=== PATIENT | female | born 1955 | race Caucasian/White ===

== ENCOUNTER → 2018-02-02 | Outpatient (CLI) | payer BC ==
[~2018-02-02] MED LIST: ACET1TAB84 PO; ASPI81TA28 PO; BISO10TA14 PO; CALC600T9 PO; FLUT0.15 INTNAS; HYZ/10015 PO; METF-384 PO; PRAV20TA PO; SITA100T3 PO; TRAM-10 PO
--- NOTE | 2018-02-02 12:29 | DIAGNOSTIC IMAGING REPORT ---
CHEST 2 VIEWS ROUTINE CLINICAL HISTORY: Preoperative evaluation. COMPARISON STUDY: No previous studies for comparison. FINDINGS: Lung volumes are normal. No pneumothorax or pleural effusion is noted. There is no consolidation or evidence for pulmonary edema. Cardiac size is normal. Mediastinal contours are normal. IMPRESSION: No acute cardiopulmonary findings. Electronically signed by: Mateus Ornelas M.D. 02/02/2018 12:27 PM Dictated Date/Time: 02/02/2018 12:27 PM
[2018-02-02 12:45] LABS: BASO % 0.4 %; BASO ABS # 0.03 K/uL (0-0.2); EOS % 2.7 %; EOS ABS # 0.18 K/uL (0-0.5); HEMATOCRIT 41.5 % (37-47); HEMOGLOBIN 13.2 g/dL (12.0-16.0); IG# 0.01 K/uL (0.00-0.02); LYMPH % 24.4 %; LYMPH ABS # 1.63 K/uL (1.2-3.4); MEAN CORPUSCULAR HEMOGLOBIN 26.4 pg (25-34); MEAN CORPUSCULAR HGB CONC 31.8 g/dl (32-36); MEAN PLATELET VOLUME 11.6 fL (7.4-10.4); MONO ABS # 0.27 K/uL (0.11-0.59); NEUT % 68.4 %; NEUT ABS # 4.57 K/uL (1.4-6.5); PLATELET COUNT 218 K/uL (130-400); RED CELL DISTRIBUTION WIDTH CV 15.1 % (11.5-14.5); WHITE BLOOD COUNT 6.69 K/uL (4.8-10.8)
[2018-02-02 12:51] LABS: ALBUMIN 3.9 gm/dl (3.4-5.0); BLOOD UREA NITROGEN 18 mg/dl (7-18); CALCIUM 9.2 mg/dl (8.5-10.1); CARBON DIOXIDE 28 mmol/L (21-32); CREATININE 1.05 mg/dl (0.60-1.20); GLUCOSE 106 mg/dl (70-99); SODIUM 140 mmol/L (136-145)
[2018-02-02 12:53] LABS: PTT PATIENT 26.5 SECONDS (21.0-31.0)
[2018-02-02 13:15] LABS: HEMOGLOBIN A1C 6.4 % (4.5-5.6)
== END | disposition home or self-care (01) ==
LOC: C.CPL 10:42
PROVIDERS: ATTEND Orthopaedic Surgery
DX: Z01.810 Encounter for preprocedural cardiovascular examination (principal); Z01.811 Encounter for preprocedural respiratory examination; Z01.812 Encounter for preprocedural laboratory examination; R00.1 Bradycardia, unspecified

== ENCOUNTER 2018-03-04 06:02 | Inpatient (IN) | payer BC ==
[2018-01-23 12:28] VITALS: BMI 39.0
--- NOTE | 2018-02-02 09:50 | History and Physical ---
History & Physical Date Feb 02, 2018. Chief Complaint Right Knee Pain History of Present Illness Ms Parks is a 63 year old female who is here for PRE-OPERATIVE VISIT, RIGHT KNEE TKA SCHEDULED FOR 03/04/[address] FREEMAN @ [facility]. The symptoms occur intermittently and is unchanged. Currently the patient states that the symptoms are moderate-severe. The pain is described as aching, discomforting and throbbing. She rates her current pain as 4/10. The symptoms are aggravated by ascending stairs, descending stairs, daily activities, driving, first steps while awake, kneeling, movement, repetitive activities, sleeping on the affected side, squatting and walking. Julia states that the symptoms are relieved by no specific activity. In addition to right knee pain the patient is also experiencing decreased mobility, difficulty bending, difficulty going to sleep, limping, nighttime awakening, pain, stiffness, tenderness and weakness. Pertinent negatives include chills and fever. The patient has had a previous x- ray and MRI. Prior pain medications include Tylenol and Ultram. Prior NSAIDs include aspirin. Patient is unable to take NSAIDS d/t having stage 2 kidney disease. NSAIDS not recommended by PCP. She has been treated with a corticosteroid injection on the right side. Patient has been treated with previous visco supplementation, Euflexxa series of 3 injections. No relief with injections. Past Medical/Surgical History Hypertension Type II Diabetes Obesity Stage 2 Kidney Disease Tonsillectomy 1960 Ankle Lipoma 1980s 1989 Additional History Hepatic Disease: No Kidney Disease: Yes Hypertension: Yes Other: 5'6" 242 pounds O2 sats- 99% Pulse- 60 BP 102/64 Allergies Coded Allergies: Nickel (Verified Allergy, Unknown, SKIN IRRITATION, 01/23/18) Nitrofurantoin (Verified Allergy, Unknown, HIVES, 01/23/18) Sulfa Antibiotics (Verified Allergy, Unknown, HIVES, 01/23/18) Home Medications Scheduled Acetaminophen (Tylenol Arthritis Ext Rel), 650 MG PO BID Aspirin (Aspirin Ec), 81 MG PO QPM Bisoprolol/Hctz (Ziac 10MG/6.25MG), 1 TAB PO QAM Calcium Carbonate-Vitamin D (Calcium + D), 1 TAB PO QAM Fluticasone Propionate (Nasal) (Flonase Allergy Relief), 1 SPRAYS INTNAS QAM Hctz/Losartan (Hyzaar 25MG/100MG), 1 TAB PO QAM Metformin Hcl (Glucophage), 1,000 MG PO BID Pravastatin (Pravachol ), 40 MG PO HS Sitagliptin Phosphate (Januvia), 100 MG PO QAM Tramadol (Ultram), 50 MG PO BID Physical Examination Skin: warm/dry, no rash Eyes: normal inspection, EOMI, sclerae normal ENT: normal ENT inspection, pharynx normal Neck: supple, no adenopathy, trachea midline Respiratory/Chest: lungs clear, normal breath sounds, no respiratory distress Cardiovascular: regular rate, rhythm, no edema, no murmur Abdomen / GI: normal bowel sounds, non tender Addiitonal Comments: Right Knee Physical Exam Exam Findings Details Ankle ROM R * Active ROM - Factors: normal, Description: active pain free range of motion. Passive ROM - Factors: normal, Description: passive pain free range of motion. Hip ROM R * Active ROM - Factors: normal, Description: active pain free range of motion. Passive ROM - Factors: normal, Description: passive pain free range of motion. Knee ROM R * Active ROM - Flexion: 115 degrees, Extension: 3 degrees, Factors: pain, Description: active painful range of motion. Passive ROM - Flexion: 115 degrees, Extension: 3 degrees, Factors: pain, Description: passive painful range of motion. Strength LE Normal Strength Description - Normal lower extremity: Right. Hip: Right: strength is normal. Knee: Right: strength is normal. Ankle/Foot: Right: strength is normal. Knee * Inspection - Gait: limp. Alignment - Right: varus, Clinical. Ecchymosis - Right: none. Effusion - Right: mild. Swelling - Right: mild. Maximum tenderness - Right: diffuse. Patella exam - Crepitation - Right: moderate. [facility]'s - lateral - Right: Positive. [facility]'s - medial - Right: Positive. Knee Comments Calf SNT, DP+2 Knee Normal Inspection - Atrophy - Right: Absent. Patella exam - Apprehension - Right: Negative. Ashlee's - Right: Negative. Valgus stress - Right: Negative. Varus stress - Right: Negative. Extensor lag - Right: Normal. Neurovascular LE Normal Neurovascular examination including reflexes, sensation , and pulses is within normal limits. Xrays reviewed of the Right knee showing findings consistent with degenerative joint disease including joint space narrowing, subchondral sclerosis and peripheral osteophyte formation. no acute bony pathology, overall varus alignment. Impression: degenerative joint disease of the Right knee with no acute bony pathology noted. Diagnosis Right Knee Osteoarthritis Plan of Treatment Further care discussed with patient and at this point in time has failed conservative measures and would like to proceed with a right total knee replacement. Plan on discharge will be home with home health physical therapy. DVT prophalaxis with TEDs, SCDs and will also place on aspirin 81 mg p.o. b.i.d. for a month postop. Patient will have follow up appointment in our office two weeks post op for staple/suture removal and re-evaluation. Patient otherwise has no other questions or concerns.
[2018-02-02 10:54] VITALS: BMI 39.0
--- NOTE | 2018-02-02 11:25 | PAT Medication Instructions ---
Service Date Feb 02, 2018. Current Home Medication List Acetaminophen (Tylenol Arthritis Ext Rel), 650 MG PO BID Aspirin (Aspirin Ec), 81 MG PO QPM Bisoprolol/Hctz (Ziac 10MG/6.25MG), 1 TAB PO QAM Calcium Carbonate-Vitamin D (Calcium + D), 1 TAB PO QAM Fluticasone Propionate (Nasal) (Flonase Allergy Relief), 1 SPRAYS INTNAS QAM Hctz/Losartan (Hyzaar 25MG/100MG), 1 TAB PO QAM Metformin Hcl (Glucophage), 1,000 MG PO BID Pravastatin (Pravachol ), 40 MG PO HS Sitagliptin Phosphate (Januvia), 100 MG PO QAM Tramadol (Ultram), 50 MG PO BID Medication Instructions For Your Scheduled Surgery - Hold the following medications the morning of surgery: Calcium Carbonate-Vitamin D (Calcium + D), 1 TAB PO QAM Hctz/Losartan (Hyzaar 25MG/100MG), 1 TAB PO QAM Metformin Hcl (Glucophage), 1,000 MG PO BID Sitagliptin Phosphate (Januvia), 100 MG PO QAM - Take the following medications the morning of surgery with a sip of water: Tramadol (Ultram), 50 MG PO BID (okay to take up to 4 hours prior to surgery if needed) Acetaminophen (Tylenol Arthritis Ext Rel), 650 MG PO BID (okay to take up to 4 hours prior to surgery if needed) Fluticasone Propionate (Nasal) (Flonase Allergy Relief), 1 SPRAYS INTNAS QAM Bisoprolol/Hctz (Ziac 10MG/6.25MG), 1 TAB PO QAM - Take the following medications as scheduled the night before surgery: Tramadol (Ultram), 50 MG PO BID Acetaminophen (Tylenol Arthritis Ext Rel), 650 MG PO BID Pravastatin (Pravachol ), 40 MG PO HS Metformin Hcl (Glucophage), 1,000 MG PO BID Aspirin (Aspirin Ec), 81 MG PO QPM If you have any questions please call us at [phone] or [phone] or [phone]
[2018-03-04] VITALS (10 sets, daily range): BP systolic 112–164; BP diastolic 58–80; PULSE 56–73; TEMP 36.4–37; O2SAT 93–98; Ht 167.6 cm; Wt 110.6 kg
[~2018-03-04] VITALS: Ht 167.6 cm; Wt 110.6 kg
[~2018-03-04 06:02] MED LIST changes: +ACETAMINOPHEN 500 MG TAB PO SCH; +CEFAZOLIN 2000MG IV PUSH 15 ML IV SCH; +DEXAMETHASONE 4 MG TAB PO SCH; +FAMOTIDINE 20 MG TAB PO SCH; +GABAPENTIN 600 MG PO SCH; +LACTATED RINGER'S 1000ML 1,000 ML IV SCH; +LACTATED RINGER'S 1000ML 500 ML IV SCH; +METOCLOPRAMIDE HCL 10 MG TAB PO SCH; +ROPIVACAINE 5MG/ML 30 ML 150 MG, BUPIVACAINE 0.5% MPF INJ 30 ML, EpINEphrine HCL INJ 0.... INFIL SCH
[2018-03-04] MEDS: TRANEXAMIC ACID INJ 1,000 MG x 2 Bags IV SCH ×4 (06:30→08:06)
[2018-03-04] MEDS ORDERED: LIDOCAINE HCL 2% 2 ML VIAL (20MG/ML) ONE (07:02)
[2018-03-04] MEDS ORDERED: PROPOFOL IV EMULSION 10 MG/ML 20 ML VIAL ONE (07:02)
[2018-03-04] MEDS ORDERED: MIDAZOLAM HCL 1 MG/ML 2ML VIAL ONE (07:02)
--- NOTE | 2018-03-04 07:12 | History & Physical Bridge Note ---
H&P Re-Evaluation Bridge Note: I have examined the patient, reviewed the History & Physical and in the interval since the performance of the History & Physical I have noted the following changes of clinical significance: No changes noted
--- NOTE | 2018-03-04 07:12 | History and Physical ---
History & Physical Date of Service Mar 04, 2018. History & Physical Chief Complaint Right Knee Pain History of Present Illness Ms Parks is a 63 year old female who is here for PRE-OPERATIVE VISIT, RIGHT KNEE TKA SCHEDULED FOR 03/04/[address] FREEMAN @ [facility]. The symptoms occur intermittently and is unchanged. Currently the patient states that the symptoms are moderate-severe. The pain is described as aching, discomforting and throbbing. She rates her current pain as 4/10. The symptoms are aggravated by ascending stairs, descending stairs, daily activities, driving, first steps while awake, kneeling, movement, repetitive activities, sleeping on the affected side, squatting and walking. Julia states that the symptoms are relieved by no specific activity. In addition to right knee pain the patient is also experiencing decreased mobility, difficulty bending, difficulty going to sleep, limping, nighttime awakening, pain, stiffness, tenderness and weakness. Pertinent negatives include chills and fever. The patient has had a previous x- ray and MRI. Prior pain medications include Tylenol and Ultram. Prior NSAIDs include aspirin. Patient is unable to take NSAIDS d/t having stage 2 kidney disease. NSAIDS not recommended by PCP. She has been treated with a corticosteroid injection on the right side. Patient has been treated with previous visco supplementation, Euflexxa series of 3 injections. No relief with injections. no changes to her previous history and physical from 02/02/18. Past Medical/Surgical History Hypertension Type II Diabetes Obesity Stage 2 Kidney Disease Tonsillectomy 1960 Ankle Lipoma 1980s 1989 Additional History Hepatic Disease: No Kidney Disease: Yes Hypertension: Yes Other: 5'6" 242 pounds O2 sats- 99% BMI 39.4 Pulse- 60 BP 102/64 Allergies Coded Allergies: Nickel (Verified Allergy, Unknown, SKIN IRRITATION, 01/23/18) Nitrofurantoin (Verified Allergy, Unknown, HIVES, 01/23/18) Sulfa Antibiotics (Verified Allergy, Unknown, HIVES, 01/23/18) Home Medications Scheduled Acetaminophen (Tylenol Arthritis Ext Rel), 650 MG PO BID Aspirin (Aspirin Ec), 81 MG PO QPM Bisoprolol/Hctz (Ziac 10MG/6.25MG), 1 TAB PO QAM Calcium Carbonate-Vitamin D (Calcium + D), 1 TAB PO QAM Fluticasone Propionate (Nasal) (Flonase Allergy Relief), 1 SPRAYS INTNAS QAM Hctz/Losartan (Hyzaar 25MG/100MG), 1 TAB PO QAM Metformin Hcl (Glucophage), 1,000 MG PO BID Pravastatin (Pravachol ), 40 MG PO HS Sitagliptin Phosphate (Januvia), 100 MG PO QAM Tramadol (Ultram), 50 MG PO BID Physical Examination Skin: warm/dry, no rash Eyes: normal inspection, EOMI, sclerae normal ENT: normal ENT inspection, pharynx normal Neck: supple, no adenopathy, trachea midline Respiratory/Chest: lungs clear, normal breath sounds, no respiratory distress Cardiovascular: regular rate, rhythm, no edema, no murmur Abdomen / GI: normal bowel sounds, non tender Addiitonal Comments: Right Knee Physical Exam Exam Findings Details Ankle ROM R * Active ROM - Factors: normal, Description: active pain free range of motion. Passive ROM - Factors: normal, Description: passive pain free range of motion. Hip ROM R * Active ROM - Factors: normal, Description: active pain free range of motion. Passive ROM - Factors: normal, Description: passive pain free range of motion. Knee ROM R * Active ROM - Flexion: 115 degrees, Extension: 3 degrees, Factors: pain, Description: active painful range of motion. Passive ROM - Flexion: 115 degrees, Extension: 3 degrees, Factors: pain, Description: passive painful range of motion. Strength LE Normal Strength Description - Normal lower extremity: Right. Hip: Right: strength is normal. Knee: Right: strength is normal. Ankle/Foot: Right: strength is normal. Knee * Inspection - Gait: limp. Alignment - Right: varus, Clinical. Ecchymosis - Right: none. Effusion - Right: mild. Swelling - Right: mild. Maximum tenderness - Right: diffuse. Patella exam - Crepitation - Right: moderate. [facility]'s - lateral - Right: Positive. [facility]'s - medial - Right: Positive. Knee Comments Calf SNT, DP+2 Knee Normal Inspection - Atrophy - Right: Absent. Patella exam - Apprehension - Right: Negative. Ashlee's - Right: Negative. Valgus stress - Right: Negative. Varus stress - Right: Negative. Extensor lag - Right: Normal. Neurovascular LE Normal Neurovascular examination including reflexes, sensation , and pulses is within normal limits. Xrays reviewed of the Right knee showing findings consistent with degenerative joint disease including joint space narrowing, subchondral sclerosis and peripheral osteophyte formation. no acute bony pathology, overall varus alignment. Impression: degenerative joint disease of the Right knee with no acute bony pathology noted. Diagnosis Right Knee Osteoarthritis Plan of Treatment Further care discussed with patient and at this point in time has failed conservative measures and would like to proceed with a right total knee replacement. Plan on discharge will be home with home health physical therapy. DVT prophalaxis with TEDs, SCDs and will also place on aspirin 81 mg p.o. b.i.d. for a month postop. Patient will have follow up appointment in our office two weeks post op for staple/suture removal and re-evaluation. Patient otherwise has no other questions or concerns.
[2018-03-04] MEDS ORDERED: ROPIVACAINE 0.5% 5 MG/ML 30 ML VIAL ONE (07:26)
[2018-03-04] MEDS ORDERED: BUPIVACAINE 0.5 % 5 MG/1 ML PF 10ML VIAL ONE (07:26)
[2018-03-04] MEDS ORDERED: ORTHO JOINT ANESTHETIC ONE (07:33)
[2018-03-04] MEDS ORDERED: BACITRACIN 50000 UNIT VIAL ONE (07:34)
[2018-03-04] MEDS ORDERED: POVIDONE-IODINE OP SOLN 30 ML BTL ONE (07:34)
[2018-03-04] MEDS ORDERED: ONDANSETRON INJ 2 MG/ML 2 ML VIAL IV PRN ×2 (08:00→10:30)
[2018-03-04] MEDS ORDERED: ATROPINE SULFATE 0.1 MG/ML 5ML SYR IV PRN ×2 (08:00→11:15)
[2018-03-04] MEDS ORDERED: MEPERIDINE HCL 25 MG/ML CARP IV PRN (08:00)
[2018-03-04] MEDS ORDERED: FENTANYL CITRATE INJ 50 MCG/1 ML 2 ML VIAL IV PRN (08:00)
[2018-03-04] MEDS ORDERED: EpHEDrine SULFATE INJ 50 MG/ML AMP IV PRN ×2 (08:00→11:15)
[2018-03-04] MEDS ORDERED: HYDROmorphone INJ 1 MG/ML SYR IV PRN (08:00)
[2018-03-04] MEDS ORDERED: LABETALOL HCL IV 5 MG/ML 20ML IV PRN (08:00)
--- NOTE | 2018-03-04 09:35 | [facility] Post Operative Brief Note ---
Immediate Operative Summary Operative Date Mar 04, 2018. Pre-Operative Diagnosis Right knee osteoarthritis Post-Operative Diagnosis Right knee osteoarthritis Procedure(s) Performed Right total knee arthroplasty utilizing [employer] journey to patient match total knee arthroplasty size 5 femur 5 tibia 11 polyethylene [address] Huang Martin Accounting Coordinator Surgeon(s) Andrew Barron PA-C Estimated Blood Loss 5cc Findings Consistent with Post-Op Diagnosis Specimens A. Right knee bone and tissue Anesthesia Type MAC Spinal Regional Complication(s) none Disposition Disposition: Recovery Room / PACU Overlapping Procedure I was present for: the critical portions of procedure. I was immediately available: during the entire case Back up surgeon: was not required during procedure
--- NOTE | 2018-03-04 09:36 | [facility] Operative Report ---
Operative Report Operative Date Mar 04, 2018. Pre-Operative Diagnosis Right knee osteoarthritis Post-Operative Diagnosis Right knee osteoarthritis Procedure(s) Performed Right total knee arthroplasty utilizing [employer] journey to patient match total knee arthroplasty size 5 femur 5 tibia 11 polyethylene [address] 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 Specimens A. Right knee bone and tissue Anesthesia Type MAC Spinal Regional Complication(s) none Disposition Recovery Room / PACU Indications Patient presents after failed attempts at conservative management including physical therapy anti-inflammatories relative rest activity modification corticosteroid injections Visco supplementations bracing patient's had ongoing complaints of pain presents for total knee arthroplasty right knee above findings are noted time surgery indicating tricompartmental disease and pathology Description of Procedure After proper prepping and draping of the Right lower extremity anterior midline incision was made over the region of the extensor extensor mechanism after meticulous hemostasis was obtained and maintained in subcutaneous tissues a medial parapatellar incision was made The patella was subluxed lateralward the medial lateral gutter were cleaned from any hypertrophic synovitis and scar tissue of the distal femoral block was placed and the distal femoral osteotomy cut was made subsequently the chamfers anterior and posterior osteotomy cuts were made utilizing the 4-in-1 block the tibia was subsequently subluxed anteriorward medial and ateral meniscal remnants were excised in their entirety remnants of the anterior and posterior cruciate ligaments were excised in their entirety excellent exposure of the proximal tibia was obtained the tibial osteotomy guide was placed on the proximal tibial osteotomy cut was made once again the knee was irrigated with copious amounts of sterile saline solution the patella was subsequently everted lateralward thickened scar tissue around the patella was removed the patella was subsequently cut utilizing a freehand technique and was drilled prepared for final preparation and placement of patella socially flexion-extension gaps were checked and the equal and symmetric trials were placed to the appropriate femoral and tibial trials with poly-spacer being placed for equal flexion and extension gaps and full range of motion including extension to 0 and flexion to 140 the trial components after having been taken to recovery range of motion was subsequently removed meticulous hemostasis was obtained and maintained subsequently a knee block injection of joint cocktail including ropivacaine 0.5% 150 mg. Bupivacaine 0.5 % epinephrine 1-200,030 mL's toradol 30 mg dexamethasone 4 mg ketamine 10 mg clonidine 100 micrograms normal saline solution 30 mg was infiltrated into the soft tissues of the posterior knee medial lateral gutters and periosteal synovium special attention was paid to protect neurovascular structures at all times subsequently trial components having been removed the knee was irrigated with sterile saline solution. debris was removed the proximal tibia was subsequently prepared and was made ready for the placement of the tibial component tibial component was also cemented and tamped into position the femoral component was subsequently placed and cemented in the position the patellar component was subsequently cemented in position because hemostasis once again obtained and maintained wound having been thoroughly irrigated with debridement and debridement lavage was performed as well as a medial parapatellar incision closed with #1 Vicryl in interrupted fashion subcutaneous was closed with #2 Vicryl skin was closed with skin clips. PA-C was necessary for prepping and drapping as well as wound closure of deep fascia Sub cutaneous tissue and skin and was necessary for the case. A sterile compressive dressing was placed patient was taken to recovery in stable condition of report dictated by Mario I attest to the content of the Intraoperative Record and any orders documented therein. Any exceptions are noted below. I attest to the content of the Intraoperative Record and any orders documented therein. Any exceptions are noted below.
[2018-03-04] MEDS ORDERED: MoRPHine SULFATE 2 MG/ML CARP IV PRN (10:30)
[2018-03-04] MEDS ORDERED: ALUMINUM/MAGNESIUM/SIMETH (MAALOX MAX) 30 ML UDC PO PRN (10:30)
[2018-03-04] MEDS ORDERED: MAGNESIUM HYDROXIDE SUSP 30 ML UDC PO PRN (10:30)
[2018-03-04] MEDS ORDERED: BISACODYL 10 MG SUPP PR PRN (10:30)
--- NOTE | 2018-03-04 12:07 | DIAGNOSTIC IMAGING REPORT ---
R KNEE 2 VIEWS ROUTINE CLINICAL HISTORY: Degenerative arthritis. Postop study. COMPARISON: Outside radiograph dated 02/02/2018 DISCUSSION: There are postsurgical changes of a total right knee arthroplasty and patellar resurfacing. The femoral tibial components appear well seated. Overlying surgical drains are evident. There is air within soft tissues consistent with recent surgery. IMPRESSION: Postsurgical changes of a total right knee arthroplasty. Electronically signed by: Cam Garcia M.D. 03/04/2018 12:05 PM Dictated Date/Time: 03/04/2018 12:04 PM
--- NOTE | 2018-03-04 12:31 | Anesthesiology Progress Note ---
Anesthesia Post Op Note Date & Time Mar 04, 2018 at 12:31 Vital Signs Pain Intensity: 0.0 Vital Signs Past 12 Hours Date Time Temp Pulse Resp B/P (MAP) Pulse Ox O2 Delivery O2 Flow Rate FiO2 03/04/18 11:50 36.4 56 16 119/73 (88) 96 Nasal Cannula 2.0 03/04/18 11:20 Nasal Cannula 2.0 03/04/18 11:20 36.4 59 16 132/76 (94) 97 Nasal Cannula 2.0 03/04/18 11:20 Nasal Cannula 2.0 03/04/18 11:00 36.8 61 16 123/63 96 Nasal Cannula 2 03/04/18 10:50 58 16 115/65 96 Nasal Cannula 2 03/04/18 10:40 57 16 116/55 97 Nasal Cannula 2 03/04/18 10:30 61 16 110/53 97 Nasal Cannula 2 03/04/18 10:21 36.9 62 16 98/47 96 Nasal Cannula 2 03/04/18 06:59 36.5 69 20 164/80 98 Room Air Notes Mental Status: alert / awake / arousable, participated in evaluation Pt Amnestic to Procedure: Yes Nausea / Vomiting: adequately controlled Pain: adequately controlled Airway Patency, RR, SpO2: stable & adequate BP & HR: stable & adequate Hydration State: stable & adequate Neuraxial Anesthesia: was administered, sensory block is resolving Anesthetic Complications: no major complications apparent
[2018-03-04] MEDS: SODIUM CHLORIDE 0.9% 1000ML 1,000 ML IV SCH ×2 (13:57→21:01)
[2018-03-04] MEDS ORDERED: CLONIDINE HCL 0.1 MG TAB PO PRN (14:15)
--- NOTE | 2018-03-04 15:21 | Medical Consult ---
History General Date of Service: Mar 04, 2018. Stated Complaint: Right Knee Osteoarthritis HPI The patient is a 63 year old female who presents to [facility] with complaints of Right Knee Osteoarthritis. The patient's primary care provider is Ryan Blackwell M.D.. Review of Systems Constitutional: denies: chills, diaphoresis Eyes: denies: no symptoms, tearing ENT: denies: ear discharge, loss of hearing Cardiovascular: denies: chest pain, chest pressure Respiratory: denies: cough, orthopnea Gastrointestinal: denies: constipation, diarrhea Genitourinary - Female: denies: dysuria, hematuria Musculoskeletal: reports: as stated in HPI Integumentary: denies: rash, redness Neurologic: denies: headache, dizziness Psychiatric: denies: anxiety, depression Past Medical History Past Medical History: diabetes, high cholesterol, hypertension, other (ckd 2) Past Surgical History: , other (ankel lipoma removal) Family History Parent: Hypertension Social History Hx Tobacco Use In Past Year?: No (SMOKED 2 PPD X 30 YRS-QUIT 12 YRS AGO) Smoking Status: Former Smoker Allergies Coded Allergies: Nickel (Verified Allergy, Unknown, SKIN IRRITATION, 03/04/18) Nitrofurantoin (Verified Allergy, Unknown, HIVES, 03/04/18) Sulfa Antibiotics (Verified Allergy, Unknown, HIVES, 03/04/18) Current Medications Reported Home Medications Medications Dose Route/Sig Max Daily Dose Days Date Category Ziac 10MG/6.25MG (Bisoprolol Fumarate/HCTZ) Tab 1 Tab PO QAM 01/23/18 Reported Pravachol (Pravastatin Sodium) 20 Mg Tab 40 Mg PO HS 01/23/18 Reported Hyzaar 25MG/100MG (HCTZ/Losartan Potassium) Tab 1 Tab PO QAM 01/23/18 Reported Aspirin Ec (Aspirin) 81 Mg Tab 81 Mg PO QPM 01/23/18 Reported Calcium + D (Calcium Carbonate-Vitamin D) 1 Tab Tab 1 Tab PO QAM 01/23/18 Reported Glucophage (Metformin Hcl) 1,000 Mg Tab 1,000 Mg PO BID 01/23/18 Reported Ultram (Tramadol HCl) 50 Mg Tab 50 Mg PO BID 01/23/18 Reported Tylenol Arthritis Ext Rel (Acetaminophen) 650 Mg Cplt 650 Mg PO BID 01/23/18 Reported Januvia (Sitagliptin Phosphate) 100 Mg Tab 100 Mg PO QAM 01/23/18 Reported Physical Physical Exam Vital Signs: Date Time Temp Pulse Resp B/P (MAP) Pulse Ox O2 Delivery O2 Flow Rate FiO2 03/04/18 14:15 36.6 64 18 144/74 (97) 96 2.0 03/04/18 13:19 60 18 116/62 (80) 95 2.0 03/04/18 12:20 61 18 126/72 (90) 95 2.0 03/04/18 11:50 36.4 56 16 119/73 (88) 96 Nasal Cannula 2.0 03/04/18 11:20 Nasal Cannula 2.0 03/04/18 11:20 36.4 59 16 132/76 (94) 97 Nasal Cannula 2.0 03/04/18 11:20 Nasal Cannula 2.0 03/04/18 11:00 36.8 61 16 123/63 96 Nasal Cannula 2 03/04/18 10:50 58 16 115/65 96 Nasal Cannula 2 03/04/18 10:40 57 16 116/55 97 Nasal Cannula 2 03/04/18 10:30 61 16 110/53 97 Nasal Cannula 2 03/04/18 10:21 36.9 62 16 98/47 96 Nasal Cannula 2 03/04/18 06:59 36.5 69 20 164/80 98 Room Air General Appearance: WELL-APPEARING, uncomfortable Head: NORMOCEPHALIC, ATRAUMATIC Eyes: PERRLA, EOMI Neck: NO TENDERNESS, SUPPLE Respiratory: BREATH SOUNDS NORMAL, CLEAR TO AUSCULTATION, CLEAR TO PERCUSSION Cardiovasular: REGULAR RATE/RHYTHM, NORMAL S1S2 Abdomen: NON TENDER, NORMAL BOWEL SOUNDS, NO REBOUND Upper Extremities: NO EDEMA, NORMAL ROM Lower Extremities: NO EDEMA, other (good preipheral capillary refill) Neuro: ALERT, ORIENTED x 3 Psychiatric: NORMAL AFFECT Diagnostics Labs Results Past 24 Hours Test 03/04/18 06:38 03/04/18 10:33 03/04/18 12:02 Range/Units Bedside Glucose 113 120 147 70-90 mg/dl Impression Assessment and Plan this pt is seen post operatively and is doing well, 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
[2018-03-04] MEDS: CEFAZOLIN IV 2,000 MG in SYRINGE 0 ML IV SCH ×2 (16:05→23:15)
[2018-03-04] MEDS: INSULIN ASPART 100 UNITS/ML 3 ML PEN SC SCH ×2 (17:15→21:00)
[2018-03-04] MEDS: FERROUS GLUCONATE 324 MG TAB PO SCH (17:45)
[2018-03-04] MEDS: ASPIRIN 81 MG ECTAB PO SCH (21:06)
[2018-03-04] MEDS: PRAVASTATIN SOD 20 MG TAB PO SCH (21:06)
[2018-03-04] MEDS: SENNA 8.6 MG TAB PO SCH (21:06)
[2018-03-04] MEDS: DOCUSATE SODIUM 100 MG CAP PO SCH (21:06)
[2018-03-04] MEDS: ACETAMINOPHEN 500 MG TAB PO SCH (21:07)
[2018-03-04] MEDS: TRAMADOL HCL 50 MG TAB PO SCH (21:11)
[2018-03-05 03:00] VITALS: BP 136/68; PULSE 59; TEMP 36.9; O2SAT 95
[2018-03-05] MEDS: ACETAMINOPHEN 500 MG TAB PO SCH ×3 (05:27→21:46)
[2018-03-05] MEDS: SODIUM CHLORIDE 0.9% 1000ML 1,000 ML IV SCH (05:28)
[2018-03-05 06:19] LABS: HEMATOCRIT 33.6 % (37-47); HEMOGLOBIN 10.9 g/dL (12.0-16.0); MEAN CELL VOLUME 81.4 fL (80-100); MEAN CORPUSCULAR HEMOGLOBIN 26.4 pg (25-34); MEAN CORPUSCULAR HGB CONC 32.4 g/dl (32-36); MEAN PLATELET VOLUME 11.2 fL (7.4-10.4); PLATELET COUNT 220 K/uL (130-400); RED CELL DISTRIBUTION WIDTH SD 44.4 fL (36.4-46.3); WHITE BLOOD COUNT 15.23 K/uL (4.8-10.8)
[2018-03-05 06:52] LABS: CREATININE 0.97 mg/dl (0.60-1.20); POTASSIUM 3.9 mmol/L (3.5-5.1)
--- NOTE | 2018-03-05 07:02 | Orthopedic Progress Note ---
Orthopedic Progress Note Date of Service Mar 05, 2018. Subjective Post OP Day: 1 (right TKA) Reports: feeling well, pain controlled w PO medications, Denies: complaints, chest pain, SOB, nausea / vomiting, light headedness, calf pain Objective calves soft nontender, N/V intact, capillary refill less than 2 sec., dressing C /D/I, A&O x3, toes mobile, hemovac drainage (125cc/8 hours) Date Time Temp Pulse Resp B/P (MAP) Pulse Ox O2 Delivery O2 Flow Rate FiO2 03/05/18 03:00 36.9 59 16 136/68 (90) 95 Room Air 03/04/18 23:27 Room Air 03/04/18 22:45 36.5 65 16 145/72 (96) 95 Room Air 03/04/18 19:05 36.9 73 20 125/76 (92) 96 03/04/18 15:45 93 Room Air 03/04/18 15:42 37.0 63 22 112/58 (76) 93 Nasal Cannula 1.0 03/04/18 14:15 36.6 64 18 144/74 (97) 96 2.0 03/04/18 13:19 60 18 116/62 (80) 95 2.0 03/04/18 12:20 61 18 126/72 (90) 95 2.0 03/04/18 11:50 36.4 56 16 119/73 (88) 96 Nasal Cannula 2.0 03/04/18 11:20 Nasal Cannula 2.0 03/04/18 11:20 36.4 59 16 132/76 (94) 97 Nasal Cannula 2.0 03/04/18 11:20 Nasal Cannula 2.0 03/04/18 11:00 36.8 61 16 123/63 96 Nasal Cannula 2 03/04/18 10:50 58 16 115/65 96 Nasal Cannula 2 03/04/18 10:40 57 16 116/55 97 Nasal Cannula 2 03/04/18 10:30 61 16 110/53 97 Nasal Cannula 2 03/04/18 10:21 36.9 62 16 98/47 96 Nasal Cannula 2 Laboratory Results 24 Hours: Test 03/05/18 05:35 Hematocrit 33.6 % Hemoglobin 10.9 g/dL Assessment & Plan Assessment: POD #1 s/p Right TKA pt/ot dvt proph with ihsan/scd/asa plan for d/c home with HHPT HYPERTENSION HIGH CHOLESTEROL DIABETES ON SSI Inhouse Planning DVT Prophylaxis: TEDs, SCDs, ASA Discharge Planning Discharge Planning: home with home health DVT Prophylaxis: TEDs, SCDs, ASA Therapy: Physical Therapy
[2018-03-05 07:07] VITALS: BP 156/72; PULSE 60; TEMP 36.6; O2SAT 94
[2018-03-05] MEDS: INSULIN ASPART 100 UNITS/ML 3 ML PEN SC SCH ×4 (08:00→21:00)
--- NOTE | 2018-03-05 08:01 | Anesthesiology Progress Note ---
Anesthesia Post Op Note Date & Time Mar 05, 2018 at 08:00 Vital Signs Pain Intensity: 0.0 Vital Signs Past 12 Hours Date Time Temp Pulse Resp B/P (MAP) Pulse Ox O2 Delivery O2 Flow Rate FiO2 03/05/18 07:07 36.6 60 17 156/72 (100) 94 Room Air 03/05/18 03:00 36.9 59 16 136/68 (90) 95 Room Air 03/04/18 23:27 Room Air 03/04/18 22:45 36.5 65 16 145/72 (96) 95 Room Air Notes Mental Status: alert / awake / arousable, participated in evaluation Pt Amnestic to Procedure: Yes Nausea / Vomiting: adequately controlled Pain: adequately controlled Airway Patency, RR, SpO2: stable & adequate BP & HR: stable & adequate Hydration State: stable & adequate Neuraxial Anesthesia: sensory block resolved Anesthetic Complications: no major complications apparent
[2018-03-05] MEDS: FERROUS GLUCONATE 324 MG TAB PO SCH ×3 (08:17→17:24)
[2018-03-05] MEDS: ASPIRIN 81 MG ECTAB PO SCH ×2 (08:18→21:44)
[2018-03-05] MEDS: DOCUSATE SODIUM 100 MG CAP PO SCH ×2 (08:18→21:44)
[2018-03-05] MEDS: SITAGLIPTIN 100 MG TAB PO SCH (08:19)
[2018-03-05] MEDS: CALCIUM 600MG + VIT D 400 IU TAB PO SCH (08:20)
[2018-03-05] MEDS: MULTIVITAMIN TAB PO SCH (08:20)
[2018-03-05] MEDS: TRAMADOL HCL 50 MG TAB PO SCH ×2 (08:28→21:45)
[2018-03-05] MEDS ORDERED: LOSARTAN/HCTZ 50-12.5 EA TAB PO SCH (09:00)
[2018-03-05 11:55] VITALS: BP 143/73; PULSE 58; TEMP 37; O2SAT 98
[2018-03-05 14:58] VITALS: BP 145/70; PULSE 58; TEMP 36.6; O2SAT 98
[2018-03-05 15:25] VITALS: O2SAT 98
[2018-03-05] MEDS: OXYCODONE HCL IR 5 MG TAB (IMMEDIATE RELEASE) PO PRN ×2 (15:32→21:46)
[2018-03-05] MEDS: PRAVASTATIN SOD 20 MG TAB PO SCH (21:44)
[2018-03-05] MEDS: SENNA 8.6 MG TAB PO SCH (21:45)
[2018-03-05 22:58] VITALS: BP 144/73; PULSE 68; TEMP 36.9; O2SAT 95
[2018-03-06] MEDS: OXYCODONE HCL IR 5 MG TAB (IMMEDIATE RELEASE) PO PRN ×3 (01:56→12:06)
[2018-03-06] MEDS: ACETAMINOPHEN 500 MG TAB PO SCH (05:47)
[2018-03-06 06:47] VITALS: BP 168/78; PULSE 69; TEMP 37.6; O2SAT 95
[2018-03-06] MEDS: INSULIN ASPART 100 UNITS/ML 3 ML PEN SC SCH ×2 (07:43→12:00)
[2018-03-06] MEDS: FERROUS GLUCONATE 324 MG TAB PO SCH ×2 (07:44→12:08)
[2018-03-06] MEDS: CALCIUM 600MG + VIT D 400 IU TAB PO SCH (07:47)
[2018-03-06] MEDS: SITAGLIPTIN 100 MG TAB PO SCH (07:47)
[2018-03-06] MEDS: MULTIVITAMIN TAB PO SCH (07:48)
[2018-03-06] MEDS: DOCUSATE SODIUM 100 MG CAP PO SCH (07:48)
[2018-03-06] MEDS: ASPIRIN 81 MG ECTAB PO SCH (07:49)
[2018-03-06] MEDS ORDERED: METFORMIN HCL 500 MG TAB PO SCH (08:30)
--- NOTE | 2018-03-06 08:32 | Orthopedic Progress Note ---
Orthopedic Progress Note Date of Service Mar 06, 2018. Subjective Post OP Day: 2 Additional Notes: Pt sitting up in chair at bedside. C/O pain this AM. She looks a bit uncomfortable. States she just received her OxyIR. Discussed pain medications with her. Unable to get most NSaids due to CKD. Has Morphine ordered but wants to wait to see how the other meds work. Feels she waited too long to get her medications and is now behind on the shedule. Able to get out of the chair with walker on her own and get back into bed. Objective calves soft nontender, N/V intact, incision C/D/I, A&O x3, toes mobile Date Time Temp Pulse Resp B/P (MAP) Pulse Ox O2 Delivery O2 Flow Rate FiO2 03/06/18 07:05 Room Air 03/06/18 06:47 37.6 69 16 168/78 (108) 95 Room Air 03/05/18 23:14 Room Air 03/05/18 22:58 36.9 68 15 144/73 (96) 95 Room Air 03/05/18 15:25 98 Room Air 03/05/18 14:58 36.6 58 18 145/70 (95) 98 Room Air 03/05/18 11:55 37.0 58 18 143/73 (96) 98 Room Air Assessment & Plan Assessment: POD #2 s/p Right TKA will recheck today after PT to see how her pain control is. pt/ot dvt proph with ihsan/scd/asa plan for d/c home with HHPT today if pain controlled HYPERTENSION HIGH CHOLESTEROL DIABETES ON SSI 0938 - Rechecked patient after PT. Doing much better with pain control. Would like to go home today. Plan for dc today. Inhouse Planning Pain Management: Ultram, Morphine, PO Tylenol, Oxy IR DVT Prophylaxis: TEDs, SCDs, ASA Discharge Planning Discharge Planning: home with home health DVT Prophylaxis: TEDs, ASA Therapy: Physical Therapy
[2018-03-06] MEDS ORDERED: ASPI81TA28 PO (08:38)
[2018-03-06] MEDS ORDERED: RXC5 PO (08:38)
[2018-03-06] MEDS ORDERED: ACET-24 PO (08:38)
[2018-03-06] MEDS ORDERED: SENN-61 PO (08:38)
--- NOTE | 2018-03-06 08:42 | Discharge Instructions ---
Discharge Instructions Date of Service Mar 06, 2018. Admission Reason for Admission: Right Knee Osteoarthritis Discharge Discharge Diagnosis / Problem: Right Knee Osteoarthritis Discharge Goals Goal(s): Decrease discomfort, Improve function, Increase independence Activity Recommendations Activity Limitations: per Instructions/Follow-up section Weightbearing Status: Right weightbearing (as tolerated) . Instructions / Follow-Up Instructions / Follow-Up ACTIVITY RECOMMENDATIONS: SELF CARE INSTRUCTIONS AFTER TOTAL KNEE REPLACEMENT A. You may need to continue a physical therapy program after discharge from the hospital. There are several options available to you. Your doctor will assist you in selecting the best one for you. 1. An out-patient facility 2 to 3 times a week for therapy or home therapy. 2. Continue working on all exercises taught to you in the hospital. Your goals should be to increase bending of your knee to 90 degrees and beyond and to fully straighten your knee. B. You may progress at your own pace from walking with a walker or crutches to a cane; then to no assistive devices. C. Make walking a part of your daily routine. Be up as much as comfortable with rest periods throughout the day. Rest with leg elevation is very important. Use the ice wrap frequently for the first 3-4 weeks. D. There are no restrictions on activities. You may ride in a car, shop, participate in patient office rep and all social activities. E. Wear the long elastic stockings (SPRING hose) 20 hours a day for 2 weeks after surgery. They can be removed several times a day for laundering and for a bath. F. You may shower, no tub baths until cleared by your doctor. SPECIAL CARE INSTRUCTIONS: VERY IMPORTANT TO READ AND REVIEW A. There are a few signs you need to watch for after you are home. Call [facility] if you notice any of the followin. Increased severe knee pain. Some pain is expected especially when you exercise. 2. Increased swelling in your leg or knee; pain or swelling of the calf muscle in either lower leg. 3. Any fluid drainage from the incision. 4. Shortness of breath or chest pain. B. Please call [facility] at if you have any concerns or questions about your operation or recovery. The doctor or his nurse will return your call promptly. C. You must take antibiotics before dental work, bladder, bowel or other surgery. Your doctor will provide you with a permanent care to carry describing this precaution. IMPORTANT: * REMEMBER TO TAKE ASPIRIN, 81 MG, TWICE DAILY FOR 4 WEEKS UNLESS OTHERWISE DIRECTED. THIS IS YOUR BLOOD THINNER. * HIGH RISK PATIENTS MAY BE PRESCRIBED A STRONGER BLOOD THINNER. THIS WILL BE PROVIDED AT DISCHARGE. * CALL IF INCREASED PAIN, REDNESS, DRAINAGE OR FEVER GREATER THAT 101. * WEAR SPRING HOSE 20 HOURS PER DAY FOR 2 WEEKS. * DERMABOND Prineo- This is a mesh tape dressing that is covered with glue. It should remain in place until the incision is properly healed, usually 10-14 days. This dressing is designed to naturally slough off. You may trim the excess mesh tape as it peels off. Incision may be briefly wet in a shower. Dry immediately by blotting with a clean, dry towel. Do not bath or swim until instructed by your doctor. Do not scratch, rub, or pick at the dressing. Do not apply any topical ointments or lotions until dressing is completely removed and/or instructed by your doctor. There may be a small piece of suture material at one end of your incision. Do not pull or trim this. If it is bothersome or catching on clothing, you may cover it with a band-aid. . FOLLOW UP VISIT: If appointment is not already scheduled: Please call [facility] to make a follow-up appointment for 2 weeks after your surgery at . Follow up with your Primary Care Physician in 7-10 days to monitor BSG's and Kidney function Current Hospital Diet Patient's current hospital diet: Diabetes Type 2 Diet Discharge Diet Recommended Diet: Diabetes Type 2 Diet Procedures Procedures Performed: Right total knee arthroplasty utilizing Splice journey to patient match total knee arthroplasty size 5 femur 5 tibia 11 polyethylene 32 oval patella Pending Studies Studies pending at discharge: no Laboratory Results Hemoglobin A1c Test 02/02/18 11:35 Range/Units Estimated Average Glucose 137 mg/dl Hemoglobin A1c 6.4 H 4.5-5.6 % Medical Emergencies . Who to Call and When: Medical Emergencies: If at any time you feel your situation is an emergency, please call 911 immediately. . Non-Emergent Contact Non-Emergency issues call your: Surgeon Call Non-Emergent contact if: temperature is above 101.5, your pain is not controlled, your pain is worsening, wound has increased drainage, wound has increased redness . "Provider Documentation" section prepared by Andrew Barron. . [place] Drug Monitoring Program Search Results: patient reviewed within database, see additional documentation Drug Monitoring Findings: Receiving Tramadol regularly (bid usage) from Dr Blackwell in [place]. Will need to return to Dr Blackwell to continue if needed after the post operative period
[2018-03-06] MEDS ORDERED: LOSARTAN POTASSIUM 50 MG TAB PO SCH (09:00)
[2018-03-06] MEDS: TRAMADOL HCL 50 MG TAB PO SCH (09:17)
[2018-03-06 10:39] VITALS: BP 168/78; PULSE 69; TEMP 37.6; O2SAT 95
== END 2018-03-06 12:45 | disposition home health service (06) | DRG 470 ==
LOC: C.ACU 06:02 → C.3E 06:45 → ENRESERV 10:51
PROVIDERS: ADMIT Orthopaedic Surgery; ATTEND Orthopaedic Surgery
PROC: 0SRC0J9 Replacement of Right Knee Joint with Synthetic Substitute, Cemented, Open Approach (ICD-10-PCS; principal; 2018-03-04 08:30)
DX: M17.11 Unilateral primary osteoarthritis, right knee (principal); I12.9 Hypertensive chronic kidney disease with stage 1 through stage 4 chronic kidney disease, or unspecified chronic kidney disease; E11.22 Type 2 diabetes mellitus with diabetic chronic kidney disease; N18.2 Chronic kidney disease, stage 2 (mild); E78.5 Hyperlipidemia, unspecified; E66.9 Obesity, unspecified; Z79.899 Other long term (current) drug therapy; Z79.84 Long term (current) use of oral hypoglycemic drugs; Z79.82 Long term (current) use of aspirin; Z68.39 Body mass index [BMI] 39.0-39.9, adult; Z88.2 Allergy status to sulfonamides; Z88.1 Allergy status to other antibiotic agents; Z91.048 Other nonmedicinal substance allergy status

== ENCOUNTER 2022-02-26 05:02 | Observation (INO) ==
--- NOTE | 2022-01-17 12:38 | History & Physical Report ---
Date of Service January 17, 2022 date of surgery: 02/13/22 Procedure: Left Total Knee Arthroplasty Surgeon: Huang Martin Assessment & Plan (1) Arthritis of knee, left: Plan: Risks and benefits of procedure discussed in detail today, patient would like to proceed with a Left total knee replacement at [facility] as scheduled. will obtain medical clearance prior to surgery as well as obtain PATs at [facility]. Will resume her Eliquis post op. she will f/u 2 weeks post op for routine post-operative care and x-ray, sooner if having any problems. will make arrangements for HHPT at the time of discharge, she is not a candidate for OPJ program. At this point in time, has failed conservative measures and would like to proceed with surgical intervention. will schedule for Iovera treatment 2 weeks prior to her surgery. The risks and benefits have been discussed including, but not limited to, risk of infection, nerve injury, stiffness, loss of motion, failure to improve, etc. Reasonable outcomes and options of treatment were discussed. An explanation of appropriate alternatives to the procedure that may be advantageous were discussed and their risks and benefits, as well as the risks and benefits of not proceeding with treatment. I offered to answer any additional inquiries concerning the treatment involved. All the patient's questions were answered. The patient is agreeable, understanding of the treatment plan and alternatives, and wishes to proceed with the treatment plan. History of Present Illness Chief Complaint: left knee pain Primary Care Provider: Tahmina Dumont is a 67 year old female who complains of left knee pain, presents for pre-op evaluation prior to a left total knee replacement by Dr Martin at [facility]. she complains of pain, decreased range of motion, instability and stiffness in her left knee. she states that the symptoms have been chronic and non-traumatic and currently the patient states that the symptoms are moderate-severe. The pain is described as aching, sharp and throbbing. her symptoms are aggravated by ascending stairs, daily activities, first steps while awake walking. she is unable to take NSAIDs due to being on anticoagulants. she has been treated with previous cortisone and visco injections in the past without much relief. she has had prior right TKA and is doing very well. Allergies Allergy/AdvReac Type Severity Reaction Status Date / Time nickel Allergy Unknown Skin Verified 06/19/21 13:39 irritation nitrofurantoin Allergy Unknown Hives Verified 06/19/21 13:39 Sulfa (Sulfonamide Allergy Unknown Hives Verified 06/19/21 13:39 Antibiotics) Home Medications Medication Instructions Recorded Confirmed Type acetaminophen 650 mg 650 mg PO QAM 06/15/21 06/15/21 History tablet,extended release allopurinol 100 mg tablet 100 mg PO QAM 06/15/21 06/15/21 History apixaban 5 mg tablet (Eliquis) 5 mg PO BID 06/15/21 06/15/21 History aspirin 81 mg tablet,delayed 81 mg PO QDD 06/15/21 06/15/21 History release calcium carbonate 600 mg-vitamin 1 tab PO QAM 06/15/21 06/15/21 History D3 5 mcg (200 unit) tablet (Calcium 600 + D(3)) cholecalciferol (vitamin D3) 125 125 mcg PO QDD 06/15/21 06/15/21 History mcg (5,000 unit) tablet (Vitamin D3) fluticasone propionate 50 1 spray INTRANASAL QAM 06/15/21 06/15/21 History mcg/actuation nasal spray,suspension hydrochlorothiazide 12.5 mg tablet 12.5 mg PO QAM 06/15/21 06/15/21 History irbesartan 300 1 tab PO QAM 06/15/21 06/15/21 History mg-hydrochlorothiazide 12.5 mg tablet liraglutide 0.6 mg/0.1 mL (18 mg/3 1.2 mg SUBCUT QAM 06/15/21 06/15/21 History mL) subcutaneous pen injector (Victoza 2-Pedrito) loratadine 10 mg tablet (Claritin) 10 mg PO QAM 06/15/21 06/15/21 History melatonin 5 mg tablet 5 mg PO HS 06/15/21 06/15/21 History metformin 1,000 mg tablet 1,000 mg PO BID 06/15/21 06/15/21 History metoprolol succinate 100 mg 100 mg PO QAM 06/15/21 06/15/21 History tablet,extended release 24 hr pravastatin 40 mg tablet 40 mg PO HS 06/15/21 06/15/21 History sitagliptin 100 mg tablet (Januvia) 100 mg PO QAM 06/15/21 06/15/21 History tramadol 50 mg tablet 50 mg PO Q6H PRN 06/15/21 06/15/21 History Past Med/Surg History Medical History Atrial fibrillation Dx ~6 months ago > on Eliquis-follows with PCP CKD (chronic kidney disease) stage 2, GFR 60-89 ml/min Diabetes mellitus, type 2 NIDDM, controlled and stable per pt DJD (degenerative joint disease) Hyperlipidemia Hypertension controlled, stable per pt Incisional hernia Osteoarthritis Urinary incontinence Surgical History History of adenoidectomy History of section x1 History of colonoscopy History of dilatation and curettage History of tonsillectomy History of tooth extraction with implant History of total knee replacement Right TKA (03/04/18): SAB at L3-L4 (x3 attempts) + PNB at [facility]. No issues per anesthesia progress note. 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 Beliefs That Will Affect Care: None Current Living Situation: Spouse Feels Safe at Home: Yes Assistive Devices: Glasses Review of Systems Review of Systems: All systems reviewed & are unremarkable except as noted in HPI & below Constitutional: no fever, no chills and no sweats Respiratory: no cough and no dyspnea Cardiovascular: no chest pain, no dyspnea and no orthopnea Gastrointestinal: no abdominal pain, no nausea and no vomiting Musculoskeletal: as per Subjective / HPI Physical Exam Physical Exam: HT: 5FT 6IN WT: 118.3KG BP: 102/64 Constitutional: WD/WN, vitals as above no acute distress Respiratory: normal respiratory effort, lungs clear to auscultation no respiratory distress, no labored breathing and does not use accessory muscles Cardiovascular: RRR, no murmur, no edema Gastrointestinal (Abdomen): normal bowel sounds, soft, nontender, no hepatosplenomegaly Musculoskeletal: Knee: + knee abnormal to inspection (LEFT KNEE), + deformity (VARUS), + effusion (+1 effusion), + limited ROM of knee (ROM 0/3/110), + knee ROM with crepitation, + joint line tenderness (medial joint line) and + Radha's sign positive; no skin erythema, no ecchymosis, no valgus laxity, no varus laxity, anterior drawer test negative, Ashlee's sign negative and pivot shift test negative Results & Data Results & Data ([facility]) Diagnostic Findings Left Knee X-ray: left knee series confirm advanced degenerative changes to the left knee, greatest medial compartments and patellofemoral joint, showing joint space narrowing, osteophyte formation and subchondral sclerosis. no acute bony pathology noted.
--- NOTE | 2022-02-11 09:01 | Anesthesiology Consultation ---
Date of Service February 11, 2022 Assessment & Plan (1) Encounter for pre-operative examination: Chart Review Chart Review: Acceptable Risk for Surgery (pending preop Covid testing results ) and Patient NOT seen in Pre Admission Testing - Check BSG AM DOS Per nursing assessment 01/30/22, patient denies any recent travel. Pt did have Covid exposure from 01/2022 and tested positive with home Covid test "01/2022". Pt had headache, sore throat, vomiting and cough- treated with Paxlovid by PCP. Still has mild residual cough but other symptoms resolved. Pt is fully vaccinated for Covid. Pt scheduled for preop Covid testing 02/11/22= will await results. If Covid test is negative and patient feels well- she can proceed as scheduled. If preop Covid test positive- pt will need rescheduled due to only having hx of home Covid positive test Pt seen by cardio 02/07/22= pt seen for follow up on a fib. Pt remains in SR on EKG in office today. Flecainide initiated at last visit in September for maintenance of SR due to frequent recurrences of symptomatic a fib/flutter. She is planning for knee surgery next week. She may hold Eliquis 48-72 hours prior to operation and resume HEMRINIA after operation. ASA discontinued at last visit. Briding with paraenteral agent is not required. She is otherwise stable from a cardiac standpoint. Recent ECHO and nuclear stress test were normal earlier this year. She may proceed with planned operation without additional cardiac testing Pt seen by PCP 01/22/22= Pt presents for preop evaluation. "No further cardiopulm testing needed. Pt is cleared for surgery." Right TKA 03/04/18= Done under SAB at L3-4 with 3 attempts. History Surgery Operation Date: 02/13/22 07:00 Proposed Procedures p Left Total Knee Arthroplasty - Huang Mratin, Height/Weight Height: 5 ft 6 in Weight: 116.573 kg Allergies Allergy/AdvReac Type Severity Reaction Status Date / Time nickel Allergy Unknown Skin Verified 01/30/22 09:03 irritation nitrofurantoin Allergy Unknown Hives Verified 01/30/22 09:03 Sulfa (Sulfonamide Allergy Unknown Hives Verified 01/30/22 09:03 Antibiotics) Medications Home Medications Medication Instructions Recorded Confirmed Last Taken acetaminophen 650 mg 650 mg PO QAM 06/15/21 01/30/22 Unknown tablet,extended release allopurinol 100 mg tablet 100 mg PO QAM 06/15/21 01/30/22 Unknown apixaban 5 mg tablet (Eliquis) 5 mg PO BID 06/15/21 01/30/22 Unknown calcium carbonate 600 mg-vitamin 1 tab PO QAM 06/15/21 01/30/22 Unknown D3 5 mcg (200 unit) tablet (Calcium 600 + D(3)) cholecalciferol (vitamin D3) 125 125 mcg PO QAM 06/15/21 01/30/22 Unknown mcg (5,000 unit) tablet (Vitamin D3) fluticasone propionate 50 1 spray intranasal QAM 06/15/21 01/30/22 Unknown mcg/actuation nasal spray,suspension hydrochlorothiazide 12.5 mg tablet 12.5 mg PO QAM 06/15/21 01/30/22 Unknown irbesartan 300 1 tab PO QAM 06/15/21 01/30/22 Unknown mg-hydrochlorothiazide 12.5 mg tablet liraglutide 0.6 mg/0.1 mL (18 mg/3 1.8 mg subcut QAM 06/15/21 01/30/22 Unknown mL) subcutaneous pen injector (AtTasktoza 2-Pedrito) loratadine 10 mg tablet (Claritin) 10 mg PO QAM 06/15/21 01/30/22 Unknown melatonin 5 mg tablet 5 mg PO HS 06/15/21 01/30/22 Unknown metformin 1,000 mg tablet 1,000 mg PO BID 06/15/21 01/30/22 Unknown pravastatin 40 mg tablet 40 mg PO HS 06/15/21 01/30/22 Unknown sitagliptin 100 mg tablet (Januvia) 100 mg PO QAM 06/15/21 01/30/22 Unknown tramadol 50 mg tablet 50 mg PO Q6H PRN Pain 06/15/21 01/30/22 Unknown flecainide 50 mg tablet 50 mg PO BID 01/30/22 01/30/22 Unknown metoprolol tartrate 25 mg tablet 25 mg PO BID 01/30/22 01/30/22 Unknown Past Medical History Medical History Atrial fibrillation Dx'ed 11/2020 > on Eliquis-follows with Dr. Sheldon, [facility] CKD (chronic kidney disease) stage 2, GFR 60-89 ml/min Diabetes mellitus, type 2 NIDDM, controlled and stable per pt DJD (degenerative joint disease) History of COVID-19 01/2022, home test, put on Paxlovid, not hospitalized; sore throat, cough, vomiting, headache>resolved Hyperlipidemia Hypertension Controlled, stable per pt Incisional hernia Osteoarthritis Urinary incontinence Past Family History Family History Mother Diabetes Past Surgical History Surgical History History of adenoidectomy History of section x1 History of colonoscopy History of dilatation and curettage History of lumpectomy of left breast no cancer History of tonsillectomy History of tooth extraction with implant History of total knee replacement Right TKA (03/04/18): SAB at L3-L4 (x3 attempts) + PNB at [facility]. No issues per anesthesia progress note. Hx of lipoma Right ankle s/p excision Hx of toe surgery right big toe Social History Smoking Status: Former smoker Do You Dip or Chew Tobacco: No Smoking End Date: quit 16 years ago Hx Alcohol Use: Yes Alcohol type: hard liquor alcohol intake frequency: holidays/special occasions only Hx Substance Use: No substance use type: does not use Testing Laboratory Results 01/11/22= WBC: 9.74 H/H: 13.1/42.2 PLATELETS: 258 SODIUM: 136 POTASSIUM: 4.1 CHLORIDE: 102 CO2: 26.4 BUN: 19.0 CREATININE: 1.01 GLUCOSE: 103 HGB A1C: 7.0 PT: 12.4 INR: 1.10 UA: Negative Electrocardiogram Date: 02/07/22 SR at 77bpm EKG within normal limits Chest X-Ray Date: 06/20/21 No acute cardiopulmonary disease. Echocardiogram Date: 09/06/21 EF: 55-60% LV Function: normal RWMA: + none Other Findings: no LVH or no diastolic dysfunction Valvular Disease: + no significant valvular disease (although AV, TV, and PV poorly/not well visualized ) Stress Test Date: 02/24/22 Type: nuclear Lexiscan stress EKG is not indicative of ischemia Nuclear portion of stress test - "Normal study" Normal update of radioactivity on both the stress and resting images. No evidence of ischemic change or old myocardial infarct. Normal LV wall motion. LVEF 60% Other Testing Event monitor 11/14/2020-11/21/2020: Sinus rhythm, sinus bradycardia, sinus tachycardia, atrial fibrillation (burden 3.11%) Premature ventricular complexes (0.01%) Premature atrial complexes (0.04%) Supraventricular tachycardia (9 episodes)
--- NOTE | 2022-02-15 08:01 | History & Physical Report ---
Date of Service February 15, 2022 date of surgyery: 02/26/22 Procedure: Left Total Knee Arthroplasty Surgeon: Huang Martin Assessment & Plan (1) Arthritis of knee, left: Plan: Risks and benefits of procedure discussed in detail today, patient would like to proceed with a Left total knee replacement at [facility] as scheduled. will obtain medical clearance prior to surgery as well as obtain PATs at [facility]. Will resume her Eliquis post op. she will f/u 2 weeks post op for routine post-operative care and x-ray, sooner if having any problems. will make arrangements for HHPT at the time of discharge, she is not a candidate for OPJ program. At this point in time, has failed conservative measures and would like to proceed with surgical intervention. will schedule for Iovera treatment 2 weeks prior to her surgery. The risks and benefits have been discussed including, but not limited to, risk of infection, nerve injury, stiffness, loss of motion, failure to improve, etc. Reasonable outcomes and options of treatment were discussed. An explanation of appropriate alternatives to the procedure that may be advantageous were discussed and their risks and benefits, as well as the risks and benefits of not proceeding with treatment. I offered to answer any additional inquiries concerning the treatment involved. All the patient's questions were answered. The patient is agreeable, understanding of the treatment plan and alternatives, and wishes to proceed with the treatment plan. History of Present Illness Chief Complaint: left knee pain Primary Care Provider: Tahmina Dumont is a 67 year old female who complains of left knee pain, presents for pre-op evaluation prior to a left total knee replacement by Dr Martin at [facility]. she complains of pain, decreased range of motion, instability and stiffness in her left knee. she states that the symptoms have been chronic and non-traumatic and currently the patient states that the symptoms are moderate-severe. The pain is described as aching, sharp and throbbing. her symptoms are aggravated by ascending stairs, daily activities, first steps while awake walking. she is unable to take NSAIDs due to being on anticoagulants. she has been treated with previous cortisone and visco injections in the past without much relief. she has had prior right TKA and is doing very well. Allergies Allergy/AdvReac Type Severity Reaction Status Date / Time nickel Allergy Unknown Skin Verified 01/30/22 09:03 irritation nitrofurantoin Allergy Unknown Hives Verified 01/30/22 09:03 Sulfa (Sulfonamide Allergy Unknown Hives Verified 01/30/22 09:03 Antibiotics) Home Medications Medication Instructions Recorded Confirmed Type acetaminophen 650 mg 650 mg PO QAM 06/15/21 01/30/22 History tablet,extended release allopurinol 100 mg tablet 100 mg PO QAM 06/15/21 01/30/22 History apixaban 5 mg tablet (Eliquis) 5 mg PO BID 06/15/21 01/30/22 History calcium carbonate 600 mg-vitamin 1 tab PO QAM 06/15/21 01/30/22 History D3 5 mcg (200 unit) tablet (Calcium 600 + D(3)) cholecalciferol (vitamin D3) 125 125 mcg PO QAM 06/15/21 01/30/22 History mcg (5,000 unit) tablet (Vitamin D3) fluticasone propionate 50 1 spray intranasal QAM 06/15/21 01/30/22 History mcg/actuation nasal spray,suspension hydrochlorothiazide 12.5 mg tablet 12.5 mg PO QAM 06/15/21 01/30/22 History irbesartan 300 1 tab PO QAM 06/15/21 01/30/22 History mg-hydrochlorothiazide 12.5 mg tablet liraglutide 0.6 mg/0.1 mL (18 mg/3 1.8 mg subcut QAM 06/15/21 01/30/22 History mL) subcutaneous pen injector (Victoza 2-Pedrito) loratadine 10 mg tablet (Claritin) 10 mg PO QAM 06/15/21 01/30/22 History melatonin 5 mg tablet 5 mg PO HS 06/15/21 01/30/22 History metformin 1,000 mg tablet 1,000 mg PO BID 06/15/21 01/30/22 History pravastatin 40 mg tablet 40 mg PO HS 06/15/21 01/30/22 History sitagliptin 100 mg tablet (Januvia) 100 mg PO QAM 06/15/21 01/30/22 History tramadol 50 mg tablet 50 mg PO Q6H PRN Pain 06/15/21 01/30/22 History flecainide 50 mg tablet 50 mg PO BID 01/30/22 01/30/22 History metoprolol tartrate 25 mg tablet 25 mg PO BID 01/30/22 01/30/22 History Past Med/Surg History Medical History Atrial fibrillation Dx'ed 11/2020 > on Eliquis-follows with Dr. Sheldon, [facility] Cardio CKD (chronic kidney disease) stage 2, GFR 60-89 ml/min Diabetes mellitus, type 2 NIDDM, controlled and stable per pt DJD (degenerative joint disease) History of COVID-19 01/2022, home test, put on Paxlovid, not hospitalized; sore throat, cough, vomiting, headache>resolved Hyperlipidemia Hypertension Controlled, stable per pt Incisional hernia Osteoarthritis Urinary incontinence Surgical History History of adenoidectomy History of section x1 History of colonoscopy History of dilatation and curettage History of lumpectomy of left breast no cancer History of tonsillectomy History of tooth extraction with implant History of total knee replacement Right TKA (03/04/18): SAB at L3-L4 (x3 attempts) + PNB at [facility]. No issues per anesthesia progress note. Hx of lipoma Right ankle s/p excision Hx of toe surgery right big toe Family History Mother Diabetes Social History Smoking Status: Former smoker Second Hand Exposure: No; Hx Alcohol Use: Yes Alcohol type: hard liquor Hx Substance Use: No Preferred Language: Romansh Communication Ability: Effective Showplace Manager Required: No Beliefs That Will Affect Care: None Current Living Situation: Spouse Feels Safe at Home: Yes Assistive Devices: Glasses Review of Systems Constitutional: no fever, no chills and no sweats Respiratory: no cough and no dyspnea Cardiovascular: no chest pain, no dyspnea and no orthopnea Gastrointestinal: no abdominal pain, no nausea and no vomiting Musculoskeletal: as per Subjective / HPI Physical Exam Physical Exam: HT: 5FT 6IN WT: 118.3KG BP: 102/64 Constitutional: WD/WN, vitals as above no acute distress Respiratory: normal respiratory effort, lungs clear to auscultation no respiratory distress, no labored breathing and does not use accessory muscles Cardiovascular: RRR, no murmur, no edema Gastrointestinal (Abdomen): normal bowel sounds, soft, nontender, no hepatosplenomegaly Musculoskeletal: Knee: + knee abnormal to inspection (LEFT KNEE), + deformity (VARUS), + effusion (+1 effusion), + limited ROM of knee (ROM 0/3/110), + knee ROM with crepitation, + joint line tenderness (medial joint line) and + Radha's sign positive; no skin erythema, no ecchymosis, no valgus laxity, no varus laxity, anterior drawer test negative, Ashlee's sign negative and pivot shift test negative Results & Data Results & Data ([facility]) Diagnostic Findings Left Knee X-ray: left knee series confirm advanced degenerative changes to the left knee, greatest medial compartments and patellofemoral joint, showing joint space narrowing, osteophyte formation and subchondral sclerosis. no acute bony pathology noted.
[~2022-02-26 05:02] MED LIST changes: -ACET1TAB84 PO; -ACETAMINOPHEN 500 MG TAB PO SCH; -ASPI81TA28 PO; -BISO10TA14 PO; -CALC600T9 PO; -CEFAZOLIN 2000MG IV PUSH 15 ML IV SCH; -DEXAMETHASONE 4 MG TAB PO SCH; -FAMOTIDINE 20 MG TAB PO SCH; -FLUT0.15 INTNAS; -GABAPENTIN 600 MG PO SCH; +General Order Problem(s) SCH; -HYZ/10015 PO; -LACTATED RINGER'S 1000ML 1,000 ML IV SCH; -LACTATED RINGER'S 1000ML 500 ML IV SCH; +LR 500ML BOLUS, THEN 15ML/HR IV SCH; -METF-384 PO; -METOCLOPRAMIDE HCL 10 MG TAB PO SCH; -PRAV20TA PO; +ROPIVACAINE 0.5% HCL/PF 150 MG, BUPIVACAINE 0.75% MPF 20 ML, EPINEPHrine 30MG/30ML (OR ... INSTIL SCH; -ROPIVACAINE 5MG/ML 30 ML 150 MG, BUPIVACAINE 0.5% MPF INJ 30 ML, EpINEphrine HCL INJ 0.... INFIL SCH; -SITA100T3 PO; -TRAM-10 PO
[2022-02-26] MEDS ORDERED: TRANEXAMIC ACID 1,000 MG **IV Intra-op IV SCH (06:00)
[2022-02-26] MEDS ORDERED: ROPIVACAINE 0.5% HCL/PF 150 MG, BUPIVACAINE 0.75% MPF 20 ML, EPINEPHrine 30MG/30ML (OR ... INSTIL SCH (06:00)
[2022-02-26] MEDS ORDERED: LR 500ML BOLUS, THEN 15ML/HR IV SCH (06:00)
[2022-02-26] MEDS ORDERED: METOCLOPRAMIDE HCL 10 MG TABLET PO SCH (06:00)
[2022-02-26] MEDS ORDERED: GABAPENTIN 300 MG CAP PO SCH (06:00)
[2022-02-26] MEDS ORDERED: dexAMETHasone 4 MG TAB PO SCH (06:00)
[2022-02-26] MEDS ORDERED: ceFAZolin 2000MG 2,000 MG/15 ML SYR IV SCH (06:00)
[2022-02-26] MEDS ORDERED: TRANEXAMIC ACID / 0.7% NACL 1,000 MG/100 ML BAG IV SCH (06:00)
[2022-02-26] MEDS ORDERED: FAMOTIDINE 20 MG TAB PO SCH (06:00)
[2022-02-26] MEDS ORDERED: ACETAMINOPHEN 500 MG TAB PO SCH (06:00)
[2022-02-26] MEDS ORDERED: BUPIVACAINE 0.25% 30 ML VIAL ONE (06:21)
[2022-02-26] MEDS ORDERED: EPINEPHrine INJ 1 MG/ML AMP ONE (06:21)
[2022-02-26] MEDS ORDERED: DEXAMETHASONE SOD INJ 4 MG/ML VIAL ONE ×2 (06:21→09:23)
[2022-02-26] MEDS ORDERED: BUPIVACAINE 0.5 % 5 MG/1 ML PF 10ML VIAL ONE (06:22)
[2022-02-26] MEDS ORDERED: PROPOFOL IV EMULSION 10 MG/ML 20 ML VIAL IV ONE ×2 (06:46→08:36)
[2022-02-26] MEDS ORDERED: MIDAZOLAM HCL 1 MG/ML 2ML VIAL ONE (06:46)
[2022-02-26] MEDS ORDERED: fentaNYL citrate 100 MCG/2 ML VIAL ONE (06:46)
[2022-02-26] MEDS ORDERED: ORTHO JOINT ANESTHETIC ONE (06:59)
--- NOTE | 2022-02-26 07:17 | History & Physical Bridge Note ---
Date of Service February 26, 2022 History & Physical Bridge Note I have examined the patient, reviewed the History & Physical and in the interval since the performance of the History & Physical I have noted the following changes of clinical significance: no changes noted
[2022-02-26] MEDS ORDERED: ePHEDrine sulfate 50 MG/ML AMP IV PRN (07:35)
[2022-02-26] MEDS ORDERED: ATROPINE SULFATE 0.1 MG/ML 10ML SYR IV PRN (07:35)
[2022-02-26] MEDS ORDERED: ONDANSETRON INJ 2 MG/ML 2 ML VIAL IV PRN ×2 (07:35→10:39)
[2022-02-26] MEDS ORDERED: fentaNYL citrate 100 MCG/2 ML VIAL IV PRN (07:35)
--- NOTE | 2022-02-26 08:39 | Operative Report ---
Post Operative Report Pre & Post Diagnosis Operation Date: 02/26/22 07:00 Pre-Op Diagnosis: Unilateral Primary Osteoarthritis, Left Knee Post-Op Diagnosis: Unilateral Primary Osteoarthritis, Left Knee I identified the patient and participated in the time-out.: Yes Procedure Operation Date: 02/26/22 07:00 Actual Procedures p Left Total Knee Arthroplasty(Left) utilizing [employer] Nephew journey 2 patient matched total knee arthroplasty size femur 5 tibia 5 polytwelve patella 32 oval- Huang Martin DO Surgeon Huang Martin DO Regional Director Of Admissions SONALI Canales Estimated Blood Loss 5 Findings Consistent with Post-Op Diagnosis Patient presents severe end-stage tricompartmental degenerative joint disease varus alignment subchondral sclerosis marginal osteophytes moderate to large effusion eburnated [id number] Specimens Bone and cartilage Drains Medium bore Hemovac Anesthesia Type MAC Spinal Regional Complications none Disposition Accompanied Patient To Recovery: No Disposition: Recovery Room Indications Patient presents severe end-stage tricompartmental degenerative joint disease failing attempted conservative management including corticosteroid injection viscosupplementation relative rest activity modification patient presents for total knee arthroplasty above intraoperative findings were noted Description of Procedure After proper prepping and draping of the left lower extremity anterior midline incision was made over the region of the extensor extensor mechanism after me ticulous hemostasis was obtained and maintained in subcutaneous tissues a medial parapatellar incision was made The patella was subluxed lateralward the medial lateral gutter were cleaned from any hypertrophic synovitis and scar tissue of the distal femoral block was placed and the distal femoral osteotomy cut was made subsequently the chamfers anterior and posterior osteotomy cuts were made utilizing the 4-in-1 block the tibia was subsequently subluxed anteriorward medial and ateral meniscal remnants were excised in their entirety remnants of the anterior and posterior cruciate ligaments were excised in their entirety excellent exposure of the proximal tibia was obtained the tibial osteotomy guide was placed on the proximal tibial osteotomy cut was made once again the knee was irrigated with copious amounts of sterile saline solution the patella was subsequently everted lateralward thickened scar tissue around the patella was removed the patella was subsequently cut utilizing a freehand technique and was drilled prepared for final preparation and placement of patella socially flexion-extension gaps were checked and the equal and symmetric trials were placed to the appropriate femoral and tibial trials with poly-spacer being placed for equal flexion and extension gaps and full range of motion including extension to 0 and flexion to 140 the trial components after having been taken to recovery range of motion was subsequently removed meticulous hemostasis was obtained and maintained subsequently a knee block injection of joint cocktail including ropivacaine 0.5% 150 mg. Bupivacaine 0.5% epinephrine 1-200,030 mL's toradol 30 mg dexamethasone 4 mg ketamine 10 mg clonidine 100 micrograms normal saline solution 30 mg was infiltrated into the soft tissues of the posterior knee medial lateral gutters and periosteal synovium special attention was paid to protect neurovascular structures at all times subsequently trial components having been removed the knee was irrigated with sterile saline solution. debris was removed the proximal tibia was subsequently prepared and was made ready for the placement of the tibial component tibial component was also cemented and tamped into position the femoral component was subsequently placed and cemented in the position the patellar component was subsequently cemented in position because hemostasis once again obtained and maintained wound having been thoroughly irrigated with debridement and debridement lavage was performed as well as a medial parapatellar incision closed with #1 Vicryl in interrupted fashion subcutaneous was closed with #2 Vicryl skin was closed with skin clips. PA-C was necessary for prepping and drapping as well as wound closure of deep fascia Sub cutaneous tissue and skin and was necessary for the case. A sterile compressive dressing was placed patient was taken to recovery in stable condition of report dictated by Mario I attest to the content of the Intraoperative Record and any orders documented therein. Any exceptions are noted below.Due to the complex nature of the procedure, the entire surgery was performed with the operational assistance of OANH Canales. The assistant technician, under direct supervision, was involved in the actual performance of all aspects of the surgical procedure including hemostasis, tissue retraction and incision, instrument management, patient posi tioning, and wound closure. I attest to the content of the Intraoperative Record and any orders documented therein. Any exceptions are noted below.
[2022-02-26] MEDS ORDERED: PHENYLEPHRINE 100MCG/ML 5ML SYR ONE (08:57)
--- NOTE | 2022-02-26 09:54 | XRay Report ---
TWO VIEWS LEFT KNEE CLINICAL HISTORY: Postoperative examination. FINDINGS: AP and crosstable lateral portable views of the left knee are obtained. A left knee arthrop lasty is in near anatomic alignment. There has been undersurface remodeling of the patella. No acute fracture is seen. There are expected postoperative changes around the knee including a surgical drain , soft tissue edema, and subcutaneous gas. IMPRESSION: Expected postoperative changes status post left knee arthroplasty. No acute fracture is s een. ACT 112: Negative or not required by law. Electronically signed by: Josh Navarro M.D. 02/26/2022 9:53 AM
[2022-02-26] MEDS ORDERED: METOCLOPRAMIDE HCL INJ 5 MG/ML 2 ML VIAL IV PRN (10:39)
[2022-02-26] MEDS ORDERED: PHARMACY GLYCEMIC MGMT CONSULT PRN (10:39)
[2022-02-26] MEDS ORDERED: NALOXONE HCL 0.4 MG/1 ML VIAL/CARP IV PRN (10:39)
[2022-02-26] MEDS ORDERED: bisacodyL 10 MG SUPP PR PRN (10:39)
[2022-02-26] MEDS ORDERED: diphenhydrAMINE Capsule 25 MG CAP PO PRN (10:39)
[2022-02-26] MEDS ORDERED: HYDROmorphone INJ 1 MG/ML SYRINGE IV PRN (10:39)
[2022-02-26] MEDS ORDERED: oxyCODONE HCL IR 5 MG TAB (IMMEDIATE RELEASE) PO PRN (10:39)
[2022-02-26] MEDS ORDERED: MAGNESIUM HYDROXIDE SUSP 30 ML UDC PO PRN (10:39)
--- NOTE | 2022-02-26 10:51 | Anesthesiology Progress Note ---
Date of Service February 26, 2022 Anesthesia Post Procedure Vital Signs Vital Signs: Temp Pulse Pulse Resp BP Pulse Ox O2 Del Method 02/26/22 09:35 73 13 109/54 L 99 Oxymask 02/26/22 10:05 36.7 C 72 13 111/55 L 95 Room Air 02/26/22 09:55 36.7 C 64 13 113/49 L 95 Room Air 02/26/22 09:45 65 10 L 106/47 L 98 Oxymask 02/26/22 09:25 66 13 102/49 L 99 Oxymask 02/26/22 09:16 36.6 C 74 11 L 91/59 L 98 Oxymask 02/26/22 05:48 36.7 C 71 18 149/61 H 95 Room Air O2 Flow Rate 02/26/22 09:35 3 02/26/22 10:05 02/26/22 09:55 02/26/22 09:45 3 02/26/22 09:25 5 02/26/22 09:16 7 02/26/22 05:48 Transfer of Care Handoff Completed per policy Notes Mental Status: alert / awake / arousable Patient Amnestic to Procedure: Yes Nausea / Vomiting: adequately controlled Pain: adequately controlled Airway Patency, RR, SpO2: stable & adequate BP & HR: stable & adequate Hydration State: stable & adequate Neuraxial Anesthesia: was administered and sensory block is resolving Anesthetic Complications: no major complications apparent and Pt Satisfied with anesthetic care
[2022-02-26] MEDS ORDERED: GLUCOSE 10 TAB/TUBE PO PRN (11:30)
[2022-02-26] MEDS ORDERED: CARBOHYDRATES FOR HYPOGLYCEMIA PO PRN (11:30)
[2022-02-26] MEDS ORDERED: DEXTROSE 50% 50 ML SYRINGE IV PRN (11:30)
[2022-02-26] MEDS ORDERED: GLUCOSE 40% GEL 15 GM TUBE PO PRN (11:30)
[2022-02-26] MEDS ORDERED: GLUCAGON FOR INJ 1 MG VIAL SQ PRN (11:30)
--- NOTE | 2022-02-26 12:44 | Pharmacy Report ---
Pharmacy Glycemic Short Note 2 - Date of Service February 26, 2022 - Glycemic Short BSG Results (Last 24 hours): 02/26/22 02/26/22 02/26/22 05:33 09:17 12:03 POC Glucose 142 H 132 H 168 H OUTPATIENT ANTIDIABETIC REGIMEN: * Victoza 1.8mg SQ qAM * Metformin 1gm PO BID * Januvia 100mg PO qAM * HbA1c: pending with AM labs ASSESSMENT: * Ms Parks is a 67yo diabetic female POD 0 s/p L TKA with Dr Martin this kim pierre. * Pt received 8mg DXM PO pre-operatively as well as an ortho joint mixture containing dexamethasone. * BSG appears to be stable post-op. * Novolog added for coverage during admission. Will adjust as indicated. * Consider resuming home PO meds tomorrow if pt is tolerating diet and no contraindications exist. PLAN FOR INPATIENT GLYCEMIC CONTROL: * Hold outpatient oral diabetes medications * Basal insulin * none at this time * Bolus insulin * NovoLog per scale ACHS or Q6hrs while NPO * Goal Range: Low 110 mg/dL - High 140 mg/dL * Correction Factor: 20 mg/dL/unit * Nutritional / Prandial insulin per carb ratio of 1 unit per 7 grams CHO consumed
[2022-02-26] MEDS: INSULIN ASPART PER UNIT SC SCH ×3 (13:47→20:58)
[2022-02-26] MEDS: ACETAMINOPHEN 500 MG TAB PO SCH ×2 (13:47→21:01)
[2022-02-26] MEDS: SODIUM CHLORIDE 0.9% 1000ML 1,000 ML IV SCH ×2 (15:51→21:00)
[2022-02-26] MEDS: ceFAZolin 2000MG 2,000 MG/15 ML SYR IV SCH (16:20)
[2022-02-26] MEDS: FLECAINIDE ACETATE 100 MG TABLET PO SCH (20:59)
[2022-02-26] MEDS: METOPROLOL TARTRATE 25 MG TAB PO SCH (20:59)
[2022-02-26] MEDS: APIXABAN 5 MG TABLET PO SCH (20:59)
[2022-02-26] MEDS: DOCUSATE SODIUM 100 MG CAP PO SCH (20:59)
[2022-02-26] MEDS ORDERED: SENNA 8.6 MG TAB PO SCH (21:00)
[2022-02-26] MEDS ORDERED: PRAVASTATIN SOD 40 MG TAB PO SCH (21:00)
[2022-02-27] MEDS: ceFAZolin 2000MG 2,000 MG/15 ML SYR IV SCH (01:08)
[2022-02-27] MEDS: ACETAMINOPHEN 500 MG TAB PO SCH (06:07)
[2022-02-27 06:08] LABS: Hematocrit (blood only) 34.7 % (34.1-44.9); Hemoglobin 11.2 g/dl (12.0-16.0); Mean Corpuscular Hemoglobin 26.4 pg (25.0-34.0); Mean Corpuscular Hgb Conc 32.3 g/dL (32.0-36.0); Mean Corpuscular Volume 81.8 fL (80.0-100.0); Mean Platelet Volume 11.7 fL (9.4-12.3); Platelet Count 262 K/uL (130-400); RDW Coefficient of Variation 14.8 % (11.5-14.5); RDW Standard Deviation 43.3 fL (36.4-46.3); Red Blood Count 4.24 M/uL (3.93-5.22); White Blood Count 15.15 K/ul (4.8-10.8)
[2022-02-27 06:31] LABS: BUN Creatinine Ratio 28.3 (10-20); Calcium 8.9 mg/dl (8.5-10.1); Est GFR (African American) 62.9 ml/min; Est GFR (Non-African American) 54.3 ml/min; Potassium 4.2 mmol/L (3.5-5.1)
[2022-02-27 06:54] LABS: Estimated Average Glucose 157 mg/dl; Hemoglobin A1C 7.1 % (4.5-5.6)
--- NOTE | 2022-02-27 07:26 | Orthopedic Progress Note ---
Date of Service February 27, 2022 Assessment & Plan (1) Arthritis of knee, left: Plan: POD #1 s/p left TKA pt/ot dvt proph with [facility]/SCD/ASA plan for d/c home with HHPT Admission and Anticipated Discharge Date Admission Date: February 26, 2022 Subjective POD #1 s/p Left TKA Review of Systems Constitutional: no fever, no chills and no sweats Respiratory: no cough and no dyspnea Cardiovascular: no chest pain and no dyspnea Gastrointestinal: no abdominal pain, no nausea and no vomiting Physical Exam Physical Exam: Vital Signs Temp 36.5 C 02/27/22 03:19 Pulse 72 02/27/22 03:19 Resp 18 02/27/22 03:19 BP 124/63 02/27/22 03:19 Pulse Ox 94 02/27/22 03:19 O2 Del Method 02/27/22 03:19 O2 Flow Rate 2 02/26/22 12:23 Intake & Output 02/26/22 02/27/22 02/27/22 18:59 06:59 18:59 Intake Total 1800 / 0 250 / 2050 Output Total 376 / 1096 720 / 1096 Balance 1424 / 954 -470 / 954 Weight 117.1 kg Intake: IV 200 / 200 Lactated Ringe r's 1,000 ml @ 15 0 / 0 mls/hr IV .Q24 H [facility] Rx#: [id number] Tranexamic Aci d / 0.7% NaCl 1, 200 / 200 000 mg In 100 ml @ 600 mls/hr IV TODAY@0600 [facility] Rx#:[id number] IV Perioperative 1600 / 1600 Oral 250 / 250 Output: Urine 300 / 800 500 / 800 Estimated Blood Loss 5 / 5 Drain Output 71 / 291 220 / 291 Left Knee Hemo vac #1 71 / 291 220 / 291 Other: # Unmeasured Voi ds 2 Musculoskeletal: Left Leg: NVDI, calf SNT, negative freddy sign. DP palpable, able to wiggle toes/ankle movement without difficulty. dressing clean dry and intact. Results & Data ([facility]) Vital Signs (Past 12 Hours) Vital Signs Temp Pulse Resp BP Pulse Ox O2 Del Method 02/27/22 03:19 36.5 C 72 18 124/63 94 Room Air 02/26/22 23:14 36.6 C 72 18 117/68 93 Room Air 02/26/22 19:37 36.8 C 79 18 133/70 93 Room Air
[2022-02-27] MEDS ORDERED: metFORMIN HCL 500 MG TAB PO SCH (08:00)
[2022-02-27] MEDS: DOCUSATE SODIUM 100 MG CAP PO SCH (08:22)
[2022-02-27] MEDS ORDERED: CALCIUM 600MG + VIT D 400 IU TAB PO SCH (09:00)
[2022-02-27] MEDS ORDERED: CHOLECALCIFEROL 5,000 UNITS 125 MCG TAB PO SCH (09:00)
[2022-02-27] MEDS ORDERED: FLUTICASONE PROPIONATE NA SPR 16 GM BTL NAE SCH (09:00)
[2022-02-27] MEDS ORDERED: MULTIVITAMIN TAB PO SCH (09:00)
[2022-02-27] MEDS ORDERED: SITagliptin PHOSPHATE 100 MG TAB PO SCH (09:00)
[2022-02-27] MEDS ORDERED: hydroCHLOROthiazide 25 MG TAB PO SCH ×3 (09:00)
[2022-02-27] MEDS ORDERED: allopurinoL 100 MG TAB PO SCH (09:00)
[2022-02-27] MEDS ORDERED: LORATADINE 10 MG TAB PO SCH (09:00)
[2022-02-27] MEDS ORDERED: IRBESARTAN 150 MG TAB PO SCH (09:00)
[2022-02-27] MEDS ORDERED: LANTUS PER UNIT CHARGE SQ SCH (09:00)
[2022-02-27] MEDS: APIXABAN 5 MG TABLET PO SCH (09:06)
[2022-02-27] MEDS: METOPROLOL TARTRATE 25 MG TAB PO SCH (09:06)
[2022-02-27] MEDS: INSULIN ASPART PER UNIT SC SCH (09:07)
[2022-02-27] MEDS: FLECAINIDE ACETATE 100 MG TABLET PO SCH (09:08)
--- NOTE | 2022-02-27 09:11 | Discharge Summary ---
Date of Service date of discharge: February 27, 2022 date of admission: 02-26-22 Admission HPI Per Admitting Provider Julia is a 67 year old female who complains of left knee pain, presents for pre-op evaluation prior to a left total knee replacement by Dr Rogers at [facility]. she complains of pain, decreased range of motion, instability and stiffness in her left knee. she states that the symptoms have been chronic and non-traumatic and currently the patient states that the symptoms are moderate-severe. The pain is described as aching, sharp and throbbing. her symptoms are aggravated by ascending stairs, daily activities, first steps while awake walking. she is unable to take NSAIDs due to being on anticoagulants. she has been treated with previous cortisone and visco injections in the past without much relief. she has had prior right TKA and is doing very well. Principal Diagnosis left knee pain Discharge Exam Vital Signs Temp 36.8 C 02/27/22 08:11 Pulse 69 02/27/22 08:11 Resp 16 02/27/22 08:11 BP 132/72 02/27/22 08:11 Pulse Ox 97 02/27/22 08:11 O2 Del Method 02/27/22 08:11 O2 Flow Rate 2 02/26/22 12:23 Intake & Output 02/26/22 02/27/22 02/27/22 18:59 06:59 18:59 Intake Total 1800 / 2050 250 / 2050 Output Total 376 / 1096 720 / 1096 Balance 1424 / 954 -470 / 954 Weight 117.1 kg Intake: IV 200 / 200 Lactated Ringer's 1,000 ml @ 15 0 / 0 mls/hr IV .Q24H [facility] Rx#: [id number] Tranexamic Acid / 0.7% NaCl 1, 200 / 200 000 mg In 100 ml @ 600 mls/hr IV TODAY@0600 [facility] Rx#:[id number] IV Perioperative 1600 / 1600 Oral 250 / 250 Output: Urine 300 / 800 500 / 800 Estimated Blood Loss 5 / 5 Drain Output 71 / 291 220 / 291 Left Knee Hemovac #1 71 / 291 220 / 291 Other: # Unmeasured Voids 2 Musculoskeletal left knee: NVDI, calf SNT, negative freddy sign. DP palpable, able to wiggle toes/ankle movement without difficulty. Discharge Data Allergies Allergy/AdvReac Type Severity Reaction Status Date / Time nickel Allergy Unknown Skin Verified 02/26/22 05:34 irritation nitrofurantoin Allergy Unknown Hives Verified 02/26/22 05:34 Sulfa (Sulfonamide Allergy Unknown Hives Verified 02/26/22 05:34 Antibiotics) Procedures Performed Operation Date: 02/26/22 07:00 Actual Procedures p Left Total Knee Arthroplasty(Left) - Huang Rogers DO Ordered Studies 02/26/22 05:00 US - OR guided needle placemen Routine Hospital Course (1) Arthritis of knee, left: POD #1 s/p left TKA pt/ot dvt proph with [facility]/SCD/ASA plan for d/c home with HHPT Total Time Total Time Spent Total Time Spent (In Minutes): 20 Discharge Plan Discharge Items Patient Disposition: Home - Home Health Services Reason For Visit: Unilateral Primary Osteoarthritis, Left Knee Discharge Diagnosis: LEFT TOTAL KNEE REPLACEMENT Activity: Per Instructions section Weightbearing: Left weightbearing Weightbearing Comment: WBAT WITH WALKER Non-emergency contact: Surgeon Call non-emergency contact if: you have any medication questions, your temperature is above 101, your wound has increased redness, your wound has increased drainage and your wound pain has increased Follow-up/Referrals: Huang Rogers DO [Surgeon] - (Follow up in 2 weeks from the day of your surgery for your first post operative visit. ) Tahmina Rodriguez D.O. [Primary Care Provider] - Diet: Carb Consistent or DM2 Addtl Attending Provider Instructions: ACTIVITY RECOMMENDATIONS: SELF CARE INSTRUCTIONS AFTER TOTAL KNEE REPLACEMENT A. You may need to continue a physical therapy program after discharge from the hospital. There are several options available to you. Your doctor will assist you in selecting the best one for you. 1. An out-patient facility 2 to 3 times a week for therapy or home therapy. 2. Continue working on all exercises taught to you in the hospital. Your goals should be to increase bending of your knee to 90 degrees and beyond and to fully straighten your knee. B. You may progress at your own pace from walking with a walker or crutches to a cane; then to no assistive devices. C. Make walking a part of your daily routine. Be up as much as comfortable with rest periods throughout the day. Rest with leg elevation is very important. Use the ice wrap frequently for the first 3-4 weeks. D. There are no restrictions on activities. 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 E. Wear the long elastic stockings (SPRING hose) 20 hours a day for 2 weeks after surgery. They can be removed several times a day for laundering and for a bath. F. You may shower, no tub baths until cleared by your doctor. SPECIAL CARE INSTRUCTIONS: VERY IMPORTANT TO READ AND REVIEW A. There are a few signs you need to watch for after you are home. Call [facility] if you notice any of the followin. Increased severe knee pain. Some pain is expected especially when you exercise. 2. Increased swelling in your leg or knee; pain or swelling of the calf muscle in either lower leg. 3. Any fluid drainage from the incision. 4. Shortness of breath or chest pain. B. Please call [facility] at if you have any concerns or questions about your operation or recovery. The doctor or his nurse will return your call promptly. C. You must take antibiotics before dental work, bladder, bowel or other surgery. Your doctor will provide you with a permanent care to carry describing this precaution. IMPORTANT: * RESUME YOUR DOSE OF ELIQUIS * CALL IF INCREASED PAIN, REDNESS, DRAINAGE OR FEVER GREATER THAT 101. * WEAR SPRING HOSE 20 HOURS PER DAY FOR 2 WEEKS. * LENA Dressing- This is a large suction dressing covering your incision. This will help pull any excess drainage from the wound and allow your incision to heal properly. You may shower with this if you can keep the unit outside of the shower. If any bleeding or leakage is noted please call your doctor's office. This will remain on your incision for 7 days and then should be removed. This can be done yourself or by the home nursing staff if applicable. The entire unit is disposable once removed. Once removed, keep incision clean and dry. If redness or drainage is noted, please call your surgeon. ONCE LENA IS REMOVED, FOLLOW THESE INSTRUCTIONS: DERMABOND Prineo- This is a mesh tape dressing that is covered with glue. It should remain in place until the incision is properly healed, usually 10-14 days. This dressing is designed to naturally slough off. You may trim the excess mesh tape as it peels off. Incision may be briefly wet in a shower. Dry immediately by blotting with a clean, dry towel. Do not bath or swim until instructed by your doctor. Do not scratch, rub, or pick at the dressing. Do not apply any topical ointments or lotions until dressing is completely removed and/or instructed by your doctor. There may be a small piece of suture material at one end of your incision. Do not pull or trim this. If it is bothersome or catching on clothing, you may cover it with a band-aid. IF INCISION IS LEAKING THROUGH DRESSING, CALL THE OFFICE . FOLLOW UP VISIT: If appointment is not already scheduled: Please call [facility] to make a follow-up appointment for 2 weeks after your surgery at . Pending Studies at Discharge: No Stand-Alone Forms: My [facility] Medications and DC Order Prescriptions: New acetaminophen [Tylenol Extra Strength] 500 mg Tablet 1,000 mg PO Q8 21 Days Qty: 126 0RF oxycodone 5 mg Tablet 5 - 10 mg PO Q6H PRN (Reason: pain) Qty: 30 0RF Rx Instructions: ongoing therapy, supervising dr rosy rogers. max 6 tabs in 24 hours docusate sodium 100 mg Capsule 100 mg PO BID 10 Days Qty: 20 0RF cefadroxil 500 mg capsule 500 mg PO BID 14 Days Qty: 28 0RF Continued pravastatin 40 mg Tablet 40 mg PO HS calcium carbonate-vitamin D3 [Calcium 600 + D(3)] 600 mg-5 mcg (200 unit) Tablet 1 tab PO QAM allopurinol 100 mg Tablet 100 mg PO QAM metformin 1,000 mg Tablet 1,000 mg PO BID irbesartan-hydrochlorothiazide 300-12.5 mg Tablet 1 tab PO QAM fluticasone propionate [Flonase] 50 mcg/actuation [place],Suspension 1 spray INTRANASAL QAM loratadine [Claritin] 10 mg Tablet 10 mg PO QAM Januvia 100 mg Tablet 100 mg PO QAM hydrochlorothiazide 12.5 mg Tablet 12.5 mg PO QAM cholecalciferol (vitamin D3) [Vitamin D3] 125 mcg (5,000 unit) Tablet 125 mcg PO QAM Victoza 2-Pedrito 0.6 mg/0.1 mL (18 mg/3 mL) Pen Injector 1.8 mg SUBCUT QAM Eliquis 5 mg Tablet 5 mg PO BID flecainide 50 mg Tablet 50 mg PO BID metoprolol tartrate 25 mg Tablet 25 mg PO BID Discontinued tramadol 50 mg Tablet 50 mg PO Q6H PRN (Reason: Pain) Rx Instructions: "takes one every day" acetaminophen [Tylenol Arthritis] 650 mg Tablet Extended Release 650 mg PO QAM melatonin 5 mg Tablet 5 mg PO HS Discharge Orders: Discharge Order (Routine); Ordered 02/27/22 Ordered By: Art Lacy/Other Patient Handouts: Managing Type 2 Diabetes Admission Data Admit Date/Time: 02/26/22 09:21 Attending Provider: Huang Rogers Admit Provider: Huang Rogers Primary Care Provider: Tahmina Rodriguez
== END 2022-02-27 12:20 | disposition home health service (06) ==
LOC: 3E 05:02 → ASU 05:02